=== PATIENT | female | born 1995 | race Caucasian/White ===

== ENCOUNTER 2022-02-17 06:55 | Inpatient (IN) | payer OTHER, SELFPAY ==
[2022-02-17] VITALS (152 sets, daily range): BP systolic 75–146; BP diastolic 39–102; PULSE 47–143; TEMP 36.3–36.9; O2SAT 87–100; BMI 31.4
--- NOTE | 2022-02-17 06:55 | LDADM ---
This patient, Ivania Nicholson, was admitted to Labor/Delivery/Recovery 105 on 02/17/22 at 06:55. Plans for labor, pain management and were discussed with patient. Patient/family oriented to hospital policies and general routines including ID bracelet, bed and alarms, visiting hours, pain management, procedures, bathroom and other care routines, personal items, smoking policy, room service/diet and guest tray routines, infant security routines, and visiting hours. Patient/Family are encouraged to report perceived risks to care and to ask questions if they do not understand what they are told or what they should do. See OBIX for further documentation.
[2022-02-17 07:32] LABS: Basophils Percent Auto 0.3 % (0.2-1.2); Eosinophils Absolute Auto 0.1 K/mm3 (0-0.3); Eosinophils Percent Auto 1.5 % (0-4.4); Hematocrit 34.1 % (37.0-47.0); Hemoglobin 11.6 g/dL (12.0-15.0); Immature Granulocyte Percent A 1.2 % (0-0.5); Lymphocytes Absolute Auto 2.36 K/mm3 (0.9-3.2); Lymphocytes Percent Auto 27.2 % (18.3-44.2); Mean Corpuscular Hemoglobin 30.8 pg (26-34); Mean Corpuscular Volume 90.5 fl (80-100); Mean Platelet Volume 10.4 fl (7.4-10.4); Monocytes Absolute Auto 0.6 K/mm3 (0.1-0.6); Monocytes Percent Auto 6.5 % (2.6-8.5); Neutrophils Absolute Auto 5.5 K/mm3 (1.3-6.7); Neutrophils Percent Auto 63.3 % (45.5-73.1); Platelet Count Result 190 k/mm3 (150-375); Red Blood Count 3.77 M/mm3 (4.2-5.4); Red Cell Distribution Width 12.8 % (11.5-14.5); White Blood Count 8.7 K/mm3 (4.5-10.0)
[2022-02-17] MEDS: LACTATED RINGERS 1,000 ML 125 ML IV CONT ×3 (07:51→16:19)
[2022-02-17] MEDS: OXYTOCIN 30 UNITS/NS 500 ML 30 UNITS/500 ML BAG IV CONT (07:51)
--- NOTE | 2022-02-17 08:40 | WPDOBADMIT ---
Obstetrics - Admit Note Admission Note: record reviewed. Additions to the history and/or subsequent changes in the physical findings follow. 26 y/o G1 at 40 5/7 weeks here for induction of labor. GBS neg. complicated by COVID-19 infection, has recovered. Good movement. Rare contractions.. AVSS NST reactive TOCO: irregular contractions ABD soft, nontender, gravid, vertex EXT nontender Cervix 2-3/80/-2. AROM with clear fluid. Vertex. A: IUP at term with favorable cervix. P: Oxytocin. Anticipate .
--- NOTE | 2022-02-17 12:48 | PM.OBPNLAB ---
Pain Control Date/time seen: 02/17/22 12:48 Comments: Comfortable with epidural. AVSS NST reactive, occasional variable decelerations TOCO: contractions every 2-4 min Cervix 4-5/90/-1. Continue labor.
--- NOTE | 2022-02-17 12:51 | WPDANESEPPF ---
Anes - Initial Pre Proc Eval Procedure: labor epidural Date/Time: 02/17/22 12:51 Surgeon: Mauri Betancourt MD Pre Op Diagnosis: labor pain Pre Op Diagnosis: Induction of Labor Patient Data Age: 26 Gender: F Height: 1.63 m Weight: 83 kg Last Vital Signs Temp 36.8 C 02/17/22 12:34 Pulse 77 02/17/22 12:49 BP 121/58 L 02/17/22 12:49 Pulse Ox 100 02/17/22 12:07 Allergies Allergy/AdvReac Type Severity Reaction Status Date / Time No Known Allergies Allergy Verified 02/17/22 07:11 Home Medications Medication Instructions Recorded Confirmed Type [id number] fum-folic ac-om3 1 pkg PO DAILY 02/17/22 02/17/22 History [Daily ] Laboratory Tests 02/17/22 02/17/22 02/17/22 07:26 07:26 07:26 WBC 8.7 K/mm3 K/mm3 (4.5-10.0) RBC 3.77 M/mm3 L M/mm3 (4.2-5.4) Hgb 11.6 g/dL L g/dL (12.0-15.0) Hct 34.1 % L % (37.0-47.0) MCV 90.5 fl fl (80-100) MCH 30.8 pg pg (26-34) MCHC 34.0 g/dl g/dl (32-36) RDW 12.8 % % (11.5-14.5) Plt Count 190 k/mm3 k/mm3 (150-375) MPV 10.4 fl fl (7.4-10.4) Immature Gran % (Auto) 1.2 % H % (0-0.5) Neut % (Auto) 63.3 % % (45.5-73.1) Lymph % (Auto) 27.2 % % (18.3-44.2) [place] % (Auto) 6.5 % % (2.6-8.5) Eos % (Auto) 1.5 % % (0-4.4) Baso % (Auto) 0.3 % % (0.2-1.2) Lymph # (Auto) 2.36 K/mm3 K/mm3 (0.9-3.2) [place] # (Auto) 0.6 K/mm3 K/mm3 (0.1-0.6) Eos # (Auto) 0.1 K/mm3 K/mm3 (0-0.3) Baso # (Auto) 0.0 K/mm3 K/mm3 (0.0-0.1) Abs Immat Gran (auto) 0.10 K/mm3 H K/mm3 (0.00-0.031) Absolute Neuts (auto) 5.5 K/mm3 K/mm3 (1.3-6.7) Absolute Nucleated RBC 0.0 K/mm3 K/mm3 (0.0-0.012) Nucleated RBC % 0.0 % % (0.0-0.2) RPR Pending Blood Type B Positive Antibody Screen Negative Patient hx anesthesia problems: none Family hx anesthesia problems: none Results Review: All pre-operative results and documents have been reviewed as part of the pre-operative evaluation. [facility] Family History Family History (Updated 01/13/22 @ 15:40 by Magdalena Love RN) Father Acute myocardial infarction Mother Asthma Grandparent Asthma Social History Social History Smoking status: Never smoker Substance use: never Spiritual care concerns: No Anes - Eval Final PreProcedure Day of Procedure 02/17/22 12:51 Patient weight: obese ASA classification: III Anesthesia type and monitoring: regional epidural and standard monitoring Results Review: All pre-operative results and documents have been reviewed as part of the pre-operative evaluation. Informed Consent: The patient's anesthetic plan and its attendant risks and benefits were discussed with the patient/family/POA. Questions were solicited and answers provided to the satisfaction of the patient/family/POA.
[2022-02-17] MEDS: SODIUM CHLORIDE 0.9% IV 300 ML 600 ML I-UTERINE (13:09)
[2022-02-17] MEDS: ONDANSETRON INJ 4 MG/2 ML VIAL IV PUSH (15:19)
[2022-02-17 18:00] LABS: Rapid Plasma Reagin Non-Reactive (NonReactive)
--- NOTE | 2022-02-17 18:26 | PM.OBPRVD ---
OB - Delivery Note Procedure Delivery date: 02/17/22 Procedure: Induction of labor with Induction method: AROM and Per Pitocin Protocol Delivery monitor: External FHT, External Uterine and Internal Uterine Route of delivery: Laceration Description: Perineal - 2nd Degree Delivery repair: vicryl (3-0) Specimen: Yes (cord blood) Quantitative Blood Loss (ml): 120 Anesthesia type: Epidural Disposition: PACU Complications: None Narrative: 26 y/o G1 at 40 5/7 weeks gestation who presented to the hospital for induction of labor. Oxytocin was administered intravenously. Amniotomy was performed with return of clear fluid. She received an epidural for pain control. Her labor progressed and her cervix dilated completely. She pushed with good effort and delivered the 's head to the perineum, followed by the body. The nose and mouth were bulb suctioned. After a delay, the cord was clamped and cut. The was handed off the field. Cord blood was collected. The placenta delivered spontaneously and was grossly normal in appearance. The usual 3 vessel cord was noted. A second degree midline perineal laceration was sustained. This was reapproximated using 3 0 Vicryl in the usual layered fashion. Excellent hemostasis resulted as did excellent reapproximation of the normal anatomy. Needle and instrument counts were correct. The patient was taken to recovery room in stable condition. The infant went to the nursery in stable condition. I was present and scrubbed for the entire delivery. [place] Baby Date of : 02/17/22 Time of : 18:07 Weeks of gestation at delivery: 40 Infant gender: Male Weight (pounds): 5 Weight (ounces): 12 presentation: vertex position: Left Occiput Anterior Placenta delivery description: Spontaneous and Normal Configuration Cord Vessel Description: 3 Vessels and Delayed Cord Clamping score one minute: 9 score five minutes: 9
[2022-02-17] MEDS: OXYTOCIN 30 UNITS/NS 500 ML 30 UNITS/500 ML BAG 125 UNITS IV CONT (18:41)
--- NOTE | 2022-02-17 19:29 | PM.OBDSVD ---
DS: Admitting Diagnosis Discharge Date 02/19/22 Admitting Diagnosis IUP at 40 5/7 weeks Favorable cervix DS: Discharge Diagnosis Discharge Diagnosis (1) (normal spontaneous vaginal delivery): Code(s): O80 - Encounter for full-term uncomplicated delivery Status: Acute OB - DS: Summary OB Procedures : None OB Procedures Intrapartum: Spontaneous Vag Delivery OB Procedures: : None DS: Data Data Completed and Pending Labs on day of discharge: Labs from last 24 hours 02/17/22 02/17/22 02/17/22 07:26 07:26 07:26 WBC 8.7 RBC 3.77 L Hgb 11.6 L Hct 34.1 L MCV 90.5 MCH 30.8 MCHC 34.0 RDW 12.8 Plt Count 190 MPV 10.4 Immature Gran % (Auto) 1.2 H Neut % (Auto) 63.3 Lymph % (Auto) 27.2 [place] % (Auto) 6.5 Eos % (Auto) 1.5 Baso % (Auto) 0.3 Lymph # (Auto) 2.36 [place] # (Auto) 0.6 Eos # (Auto) 0.1 Baso # (Auto) 0.0 Abs Immat Gran (auto) 0.10 H Absolute Neuts (auto) 5.5 Absolute Nucleated RBC 0.0 Nucleated RBC % 0.0 RPR Non-reactive Blood Type B Positive Antibody Screen Negative Discharge Plan Discharge Attending physician on discharge: Mauri Betancourt Discharging Clinician: Mauri Betancourt Patient Disposition: Home, Self-Care Activity: pelvic rest Diet: regular Discharge Instructions: Call or return if temperature above 100.4? F, increased abdominal pain, increased vaginal bleeding or any new problems. Stand Alone Forms: General Discharge Information Follow-up/Referrals: Mauri Betancourt MD [Physician] - 6 Weeks Discharge Medications: New ibuprofen 600 mg tablet 600 mg PO Q6H PRN (Reason: cramps) Qty: 30 RF: 0 Continued Daily [id number] mg-mcg-mg Combo Pack 1 pkg PO DAILY RF: 0 Date of admission: 02/17/22 06:55 Primary Care Provider: PHYSICIAN,GAMMA OPERATOR Admitting Provider: Mauri Betancourt Attending physician on admission: Mauri Betancourt Condition: Stable
[2022-02-17] MEDS: IBUPROFEN 600 MG TABLET PO (23:25)
[2022-02-18 00:19] VITALS: BP 126/75; PULSE 106; RESP 18; TEMP 36.6; O2SAT 99
[2022-02-18 04:00] VITALS: BP 112/77; PULSE 72; RESP 18; TEMP 36.4; O2SAT 99
[2022-02-18] MEDS: ACETAMINOPHEN 325 MG TABLET 650 MG PO ×2 (04:05→15:55)
[2022-02-18 05:23] LABS: Hematocrit 29.3 % (37.0-47.0)
[2022-02-18 07:40] VITALS: BP 122/75; PULSE 80; RESP 18; TEMP 36.6; O2SAT 98
[2022-02-18] MEDS: DOCUSATE SODIUM 100 MG CAPSULE PO ×2 (08:42→15:55)
[2022-02-18] MEDS: MULTIVIT/MIN/PREN/FOL AC/IRON TABLET 1 TAB PO (08:42)
[2022-02-18] MEDS: IBUPROFEN 600 MG TABLET PO ×2 (08:42→19:56)
[2022-02-18] MEDS: BENZOCAINE 20% AER SPR (*SP) 56 GM CAN 1 SPRAY TOPICAL (08:43)
[2022-02-18] MEDS: WITCH HAZEL 40 PADS 1 PAD TOPICAL (08:43)
[2022-02-18 12:00] VITALS: BP 113/67; PULSE 84; RESP 18; TEMP 37.6; O2SAT 99
--- NOTE | 2022-02-18 12:24 | PM.OBPNVD ---
OB - PN: Subj Subjective Date/time seen: 02/18/22 12:24 Narrative: Pain OK. Would like circumcision for son. OB - PN: Obj Data Labs CBC & Chem 7: 02/18/22 04:08 Labs: Laboratory Results - last 24 hr 02/17/22 02/18/22 07:26 04:08 Hgb 10.0 L Hct 29.3 L RPR Non-reactive OB - PN A/P Plan Comments: A: PPD#1, doing well. P: Routine care. Reviewed circ. Exam Psych: Other: AVSS ABD soft, nontender, fundus firm EXT nontender
--- NOTE | 2022-02-18 12:42 | PC.NURSE ---
[id number] Consulted with patient to assess needs related to . Mother led conversation with her experience with feeding baby so far. Mother works well with her infant and watching for feeding cues, placing infant skin to skin covered with a blanket and discussing mothers desires to feed her infant. Mother had just attempted to breast prior to RN entering the room and was now pumping her breast. Father of baby is attempting to bottle feed human milk that was expressed from mother earlier. RN supported the father with bottle feeding. Infant is reluctant to suck but became more assertive after eating 7-10 mls of human milk, then dad supplemented with some formula. Reviewed good handwashing when working with , breast, nipples and how to protect the nipples with a deep latch. Mother will call for assistance when is showing feeding cues or 3 hours from the beginning of the last feeding. [phone] Mother desires to attempt to breastfeed infant with and without a nipple shield. Discussed the risks and benefits of nipple shield use, pumping, pacifiers and bottle feeding. Reviewed pumping at least 8 times in 24 hours for 10-15 min with 1-2 times at night for milk production and stimulation due to nipple shield use. Supplementing with formula is an order from the farm helper at this time related to previous low blood sugars. Encouraged understanding the benefits of skin to skin, responding to feeding cues, frequencies of feeding 8-12 times in 24 hours (approximately 2-3 hours), duration of feedings, milk production, intake/output feeding sheet, signs of adequate intake and mother has infant skin to skin. Discussed stimulating with hand expressing colostrum, touch and talking to infant to encourage eating at the breast. Reviewed positioning and alignment, supporting breast, off-centered (asymmetrical latch) and leading with the chin with big open wide gape. Infant latched optimally to the right breast in football position with a nipple shield, then to the left breast with the nipple shield. maintains latch without discomfort to mother. Nipple care with optimal latch and have clean hands when touching the nipple/breast. is reluctant to maintain sucking. is supplemented with human milk 1.5 mls and given formula for a total feeding of 12-15 mls. Resources used to facilitate learning were used from the visual handout/ tool/mom and baby guide. Mother voiced understanding responding to feeding cues, may need to stimulating approximately 2-3 hours from the start of the last feeding, calling for assistance if the infant does not latch or there discomfort . Reported to primary RN.
[2022-02-18 15:45] VITALS: BP 123/78; PULSE 88; RESP 18; TEMP 37.2; O2SAT 100
[2022-02-18 20:00] VITALS: BP 107/70; PULSE 81; RESP 18; TEMP 36.6; O2SAT 99
[2022-02-19] MEDS: IBUPROFEN 600 MG TABLET PO (04:36)
[2022-02-19 07:50] VITALS: BP 112/67; PULSE 80; RESP 16; TEMP 36.3; O2SAT 98
--- NOTE | 2022-02-19 08:00 | PC.NURSE ---
PT introductions made and plan of care discussed per post , pain management, breast feeding, bottle feeding and pumping, daily care activities and pending discharge to home. PT and spouse both recipients of such instructions and no barriers to learning identified at this time. PT received such instructions per pone to one discussion, mom baby care guide and demonstrations this shift. PT verbalized understanding of such care.
[2022-02-19 09:21] VITALS: PULSE 80; RESP 16; O2SAT 98
[2022-02-19] MEDS: DOCUSATE SODIUM 100 MG CAPSULE PO (09:21)
[2022-02-19] MEDS: ACETAMINOPHEN 325 MG TABLET 650 MG PO (09:21)
[2022-02-19] MEDS: MULTIVIT/MIN/PREN/FOL AC/IRON TABLET 1 TAB PO (09:23)
--- NOTE | 2022-02-19 12:21 | PM.OBPNVD ---
OB - PN: Subj Subjective Date/time seen: 02/19/22 12:21 Narrative: Pain OK. Would like to go home. OB - PN: Obj Data Labs CBC & Chem 7: 02/18/22 04:08 OB - PN A/P Plan Comments: A: PPD#2, doing well. P: Home to f/u 6 weeks. Exam Psych: Other: AVSS ABD soft, nontender, fundus firm EXT nontender
--- NOTE | 2022-02-19 15:00 | PC.NURSE ---
PT received discharge instructions per protocol and verbalized understanding of such care.
--- NOTE | 2022-02-19 15:50 | PC.NURSE ---
pt discharged to home ambulatory accompanied by spouse and and taken to waiting car. Follow up appts confirmed
[2022-02-20 11:58] VITALS: BP 127/70; PULSE 105; RESP 20; TEMP 37.1; O2SAT 100
== END 2022-02-19 15:50 | disposition home or self-care (01) | DRG 807 ==
LOC: ANHLDR 19:31 → ANHOB2 20:43
PROVIDERS: Admitting Provider Obstetrics & Gynecology; Visit Provider Obstetrics & Gynecology
DX: O36.8330 Maternal care for abnormalities of the fetal heart rate or rhythm, third trimester, not applicable or unspecified (principal); Z37.0 Single live birth; Z3A.40 40 weeks gestation of pregnancy; O70.1 Second degree perineal laceration during delivery
CPT/HCPCS: 36415; 85014; 85018; 85025; 86592; 86850; 86900; 86901; A9270; J0131; J2405; J2590; J2795; J7030; J7120

== ENCOUNTER 2022-03-21 13:35 | Emergency (ER) | payer OTHER, SELFPAY ==
[2022-03-21 13:42] VITALS: BP 160/80; PULSE 92; RESP 16; TEMP 36.9; O2SAT 99
[2022-03-21 13:46] VITALS: BP 116/80; PULSE 92; RESP 16; TEMP 36.9; O2SAT 99
--- NOTE | 2022-03-21 14:01 | ED.EYEPROB ---
HPI - Eye Problem General Chief complaint: Eye Problems Stated complaint: eye pain Time Seen by Provider: 03/21/22 14:01 Source: patient Mode of arrival: ambulatory Limitations: no limitations History of Present Illness HPI Narrative: 26-year-old female presented for complaint of redness and drainage to the right eye, onset this morning. She states she woke with the eye crusted with yellow drainage. States it feels like something is in the eye, irritated and itching. Denies sick contacts. Denies eye pain, photophobia, vision changes, sinus congestion or pressure, headache fever or chills. chief complaint: eye pain Related Data Home Medications Medication Instructions Recorded Confirmed [id number] fum-folic ac-om3 1 pkg PO DAILY 02/17/22 03/21/22 Allergies Allergy/AdvReac Type Severity Reaction Status Date / Time No Known Allergies Allergy Verified 03/21/22 13:59 Review of Systems Review of Systems: CONSTITUTIONAL: Denies body aches, fever, chills EYES:Endorses drainage and redness to right eye; FB sensation, Denies visual changes photophobia or pain ENT: Denies rhinorrhea, congestion, sore throat, or otalgia. CARDIOVASCULAR: Denies chest pain, palpitations RESPIRATORY: Denies cough or dyspnea. GASTROINTESTINAL: Denies abdominal pain, nausea, vomiting, or diarrhea. SKIN: Denies rash, itching, or wounds. MUSCULOSKELETAL: Denies back pain, joint pain, or myalgia. NEUROLOGIC: Denies headache, numbness, tingling, or weakness. PSYCH: Denies depression or anxiety. All systems reviewed & are unremarkable except as noted in HPI and below PMFSH Family History Family History Father Acute myocardial infarction Mother Asthma Grandparent Asthma Social History Social History Smoking status: Never smoker Substance use: never Spiritual care concerns: No Comments At time of signature, I have reviewed and agree with nursing past medical, surgical, social and family history unless otherwise noted. Please see nursing chart for further information. There is no relevant family history pertinent to the presenting complaint Exam Narrative: GENERAL: Well-appearing, well-nourished, and in no acute distress. HEAD: Normocephalic, atraumatic. EYES: right conjunctival injection, no active drainage PERRLA EOMI. Lid eversion showed no fb ENT: Mucous membranes pink and moist. No rhinorrhea. TMs normal bilaterally. NECK: Normal AROM. Supple. CHEST: No respiratory distress. Clear to auscultation. HEART: Regular rate and rhythm. No murmur appreciated. Normal peripheral pulses. ABDOMEN: Soft, nontender, nondistended MUSCULOSKELETAL: No bony tenderness. EXTREMITIES: Normal range of motion. SKIN: Warm, dry, no rash. Normal skin turgor. NEURO: No focal deficits. Alert and oriented x3. Steady gait PSYCH: Normal affect. Course Course Emergency Course: Patient is aware of diagnosis, understands and agrees to treatment plan. Anticipatory guidance given. Patient agrees to follow-up as directed and is aware of reasons to seek care at the emergency department. Portions of this record may have been created with voice recognition software Level of Care: Express Care Visit Vital Signs Vital signs: Vital Signs Temperature 98.4 F 03/21/22 13:42 Pulse Rate 92 03/21/22 13:42 Respiratory Rate 16 03/21/22 13:42 Blood Pressure 160/80 H 03/21/22 13:42 Pulse Oximetry 99 03/21/22 13:42 Temperature 98.4 F 03/21/22 13:46 Pulse Rate 92 03/21/22 13:46 Respiratory Rate 16 03/21/22 13:46 Blood Pressure 116/80 03/21/22 13:46 Pulse Oximetry 99 03/21/22 13:46 MDM - Eye Problem Differential Diagnosis Differential diagnosis: Likely corneal abrasion, conjunctivitis and acute iritis Discharge Plan Discharge Clinical Impression: Bacterial conjunctivitis Patient Disposit
== END 2022-03-21 14:15 | disposition home or self-care (01) ==
PROVIDERS: Emergency Provider Nurse Practitioner Family; PCP Family Medicine
DX: H10.9 Unspecified conjunctivitis (principal); Z86.16 Personal history of COVID-19
CPT/HCPCS: 99213; G0463

== ENCOUNTER 2022-11-26 13:11 | Emergency (ER) | payer OTHER, SELFPAY ==
--- NOTE | ~2022-11-26 | XR_ITS ---
EXAM: XR abdomen/kub 1V DATE: 11/26/2022 14:20 HISTORY: BILATERAL FLANK PAIN for 2 days . COMPARISON: None available. FINDINGS: Clear lung bases. Normal bowel gas pattern. No organomegaly. Multiple pelvic phleboliths, otherwise no abnormal abdominal calcification. Regional bones and soft tissues normal for age. IMPRESSION: Normal abdominal radiograph findings. Reviewed, dictated and finalized at location K. WARE QUALITY TESTER
[2022-11-26 13:24] VITALS: BP 120/73; PULSE 89; RESP 16; TEMP 36.9; O2SAT 100
--- NOTE | 2022-11-26 14:01 | ED.BACK ---
HPI - Back Pain/Injury General Chief Complaint: Back Pain/Injury Stated Complaint: Back/side pain Time Seen by Provider: 11/26/22 14:02 Source: patient and RN notes reviewed Mode of arrival: ambulatory Limitations: no limitations History of Present Illness HPI Narrative: 27 y/o female presented for c/o bilateral flank pain since yesterday. Also reports 2 days ago she had severe epigastric pain radiating across the upper abdomen, causing her to 'double over in pain.' She took pepcid and gas-x without significant relief, but the pain later improved in the night. She developed the bilateral flank pain yesterday. States pain is constant, with occasional stabbing pain. Also taking Tylenol and ibuprofen. Nothing changes the intensity of the pain. Denies current abdominal pain, urinary complaints, n/v/d/f/c. Denies injury. LBM 3 days ago. Currently , no menses. Related Data Home Medications Medication Instructions Recorded Confirmed vits 75-iron 28 mg-folic 1 pkg PO DAILY 02/17/22 11/26/22 acid 800 mcg-omega3 440 mg oral pack Allergies Allergy/AdvReac Type Severity Reaction Status Date / Time No Known Allergies Allergy Verified 11/26/22 13:41 Review of Systems Review of Systems: per HPI [facility] Family History Family History Father Acute myocardial infarction Mother Asthma Grandparent Asthma Social History Social History Smoking status: Never smoker Substance use: never Spiritual care concerns: No Comments At time of signature, I have reviewed and agree with nursing past medical, surgical, social and family history unless otherwise noted. Please see nursing chart for further information. There is no relevant family history pertinent to the presenting complaint Exam Narrative: GENERAL: Well-appearing and in no acute distress. ENT: Mucous membranes pink and moist. NECK: Normal AROM. Supple. CHEST: No respiratory distress. Clear to auscultation. HEART: Regular rate and rhythm. ABDOMEN: Soft, nontender, nondistended, normal active bowel sounds. Mild left CVA tenderness with abdominal palpation SKIN: Warm, dry, no rash. NEURO: steady gait PSYCH: Normal affect. Course Course Emergency Course: Patient is aware of diagnosis, understands and agrees to treatment plan. Anticipatory guidance given. Patient agrees to follow-up as directed and is aware of reasons to seek care at the emergency department. Portions of this record may have been created with voice recognition software Level of Care: Express Care Visit Vital Signs Vital signs: Vital Signs Temperature 98.5 F 11/26/22 13:24 Pulse Rate 89 11/26/22 13:24 Respiratory Rate 16 11/26/22 13:24 Blood Pressure 120/73 11/26/22 13:24 Pulse Oximetry 100 11/26/22 13:24 Temperature 98.5 F 11/26/22 13:24 Pulse Rate 89 11/26/22 13:24 Respiratory Rate 16 11/26/22 13:24 Blood Pressure 120/73 11/26/22 13:24 Pulse Oximetry 100 11/26/22 13:24 Reviewed MDM - Back Pain/Injury MDM Narrative Medical decision making narrative: KUB result reviewed with pt. She is well appearing. Declines toradol. Discussed possible etiologies of symptoms with the patient. Advised supportive measures and reviewed at length signs/symptoms to go to the ER. Pt is appropriate for outpt treatment and f/u. She is agreeable with the plan. Differential Diagnosis Differential diagnosis: Likely renal colic, pyelonephritis and discitis Lab Data Labs: Urine Glucose Negative Reference Range: Negative Urine Bilirubin Negative Reference Range: Negative Urine Ketone Negative Reference Range: Negative Urine Speci
[2022-11-26 14:45] VITALS: PULSE 80; RESP 20; O2SAT 98
== END 2022-11-26 14:45 | disposition home or self-care (01) ==
PROVIDERS: Emergency Provider Nurse Practitioner Family
DX: R10.9 Unspecified abdominal pain (principal)
CPT/HCPCS: 74018; 81003; 87086; 99213; G0463

== ENCOUNTER 2023-10-04 15:01 | Emergency (ER) | payer OTHER, SELFPAY ==
[2023-10-04 15:05] VITALS: BP 133/80; PULSE 97; RESP 20; TEMP 36.6; O2SAT 100
[2023-10-04 15:22] LABS: Basophils Percent Auto 0.3 % (0.2-1.2); Eosinophils Absolute Auto 0.1 K/mm3 (0-0.3); Eosinophils Percent Auto 1.2 % (0-4.4); Hematocrit 34.7 % (37.0-47.0); Hemoglobin 11.7 g/dL (12.0-15.0); Immature Granulocyte Absolute 0.01 K/mm3 (0.00-0.031); Immature Granulocyte Percent A 0.2 % (0-0.5); Lymphocytes Percent Auto 30.5 % (18.3-44.2); Mean Corpuscular HGB Conc 33.7 g/dl (32-36); Mean Corpuscular Hemoglobin 29.9 pg (26-34); Mean Corpuscular Volume 88.7 fl (80-100); Mean Platelet Volume 9.5 fl (7.4-10.4); Monocytes Absolute Auto 0.4 K/mm3 (0.1-0.6); Monocytes Percent Auto 6.4 % (2.6-8.5); Neutrophils Absolute Auto 3.6 K/mm3 (1.3-6.7); Neutrophils Percent Auto 61.4 % (45.5-73.1); Platelet Count Result 253 k/mm3 (150-375); Red Blood Count 3.91 M/mm3 (4.2-5.4); Red Cell Distribution Width 12.8 % (11.5-14.5); White Blood Count 5.9 K/mm3 (4.5-10.0)
[2023-10-04 15:49] LABS: Beta HCG Quantitative 724.83 mIU/ML
--- NOTE | 2023-10-04 18:58 | ED.PREGNANCY ---
HPI - General Chief complaint: Vaginal Bleeding Stated complaint: known miscarriage, vag bleed Time Seen by Provider: 10/04/23 18:44 Source: patient Mode of arrival: ambulatory Limitations: no limitations History of Present Illness HPI Narrative: This is a 28-year-old female that presents to the emergency department for a miscarriage. Reports she is a little over 8 weeks by LMP. Reports she started bleeding a week ago. She had an ultrasound that confirmed that there was no heartbeat present. Her hormone level has been decreasing. She presented today for worsening bleeding and some lightheadedness. Her OB is Dr. Destiny Fountain. Denies fever or vomiting. Related Data Home Medications Medication Instructions Recorded Confirmed vits 75-iron 28 mg-folic 1 pkg PO DAILY 02/17/22 11/26/22 acid 800 mcg-omega3 440 mg oral pack Allergies Allergy/AdvReac Type Severity Reaction Status Date / Time No Known Allergies Allergy Verified 11/26/22 13:41 Review of Systems Review of Systems: CONSTITUTIONAL: Denies fever GASTROINTESTINAL: Reports pelvic pain. Denies nausea, vomiting All systems reviewed & are unremarkable except as noted in HPI and below PMFSH Past Medical History Medical History (Updated 10/04/23 @ 20:13 by Elsie Manuel PA-C) No active medical problems Family History Family History Father Acute myocardial infarction Mother Asthma Grandparent Asthma Social History Social History Smoking status: Never smoker Substance use: never Spiritual care concerns: No Exam Narrative: GENERAL: Well-appearing, well-nourished, and in no acute distress. HEAD: Normocephalic, atraumatic. EYES: EOMI. CHEST: Clear to auscultation. No respiratory distress. No wheezes rales or rhonchi HEART: Regular rate and rhythm. No murmur heard. Normal peripheral pulses. ABDOMEN: Soft, nontender, nondistended, normal active bowel sounds. EXTREMITIES: Normal range of motion. No edema. SKIN: Warm, dry, no rash. NEURO: No focal deficits. Alert and oriented x3. PSYCH: Normal mood and affect PELVIC: Mild amount of dark red blood in the vaginal vault with small blood clot present Course Course Emergency Course: Patient and family updated on workup and agree with plan of care Consultations Consultation #1: Spoke with Dr. Destiny Fountain about patient and workup. Will follow-up in clinic tomorrow Date: 10/04/23 Vital Signs Vital signs: Vital Signs Temperature 97.8 F 10/04/23 15:05 Pulse Rate 97 10/04/23 15:05 Respiratory Rate 20 10/04/23 15:05 Blood Pressure 133/80 10/04/23 15:05 Pulse Oximetry 100 10/04/23 15:05 Temperature 97.8 F 10/04/23 15:05 Pulse Rate 97 10/04/23 15:05 Respiratory Rate 20 10/04/23 15:05 Blood Pressure 133/80 10/04/23 15:05 Pulse Oximetry 100 10/04/23 15:05 MDM - OB/Uterine Contractions MDM Narrative Medical decision making narrative: Patient presents to the ER for vaginal bleeding. Reports she is about 8 weeks . She has been following with Dr. Destiny Fountain. she started to have bleeding 1 week ago. She had ultrasound which showed intrauterine without any cardiac motion. Her quantitative beta hCG has been down trending. She is having some worsening bleeding and lightheadedness today which prompted her to be seen. Her vitals are stable. She is afebrile and nontoxic appearing. Her hemoglobin is 11.7. No concerning amount of bleeding on exam currently. Patient and family updated on workup. Spoke with Dr. Destiny Fountain about patient and workup. Will follow-up in clinic tomorrow. She was given warnings to return to the ER Differential Diagnosis Differential diagnosis: Likely other ( , incomplete , anemia) Lab Data Attestation: I reviewed the patient's lab results. 10/04/23 1
[2023-10-04] MEDS: SODIUM CHLORIDE 0.9% IV 500 ML 999 ML IV CONT (19:07)
[2023-10-04] MEDS: IBUPROFEN 400 MG TABLET 800 MG PO (20:05)
[2023-10-04 20:28] VITALS: BP 134/76; PULSE 87; RESP 16; O2SAT 98
== END 2023-10-04 20:29 | disposition home or self-care (01) ==
PROVIDERS: Student in an Organized Health Care Education/Training Program; Emergency Provider Physician Assistant
DX: O03.4 Incomplete spontaneous abortion without complication (principal)
CPT/HCPCS: 36415; 81025; 84702; 85025; 86850; 86900; 86901; 96360; 99284; A9270; J7040

== ENCOUNTER 2024-10-30 13:54 | Observation (INO) | payer OTHER, SELFPAY ==
[2024-10-30] VITALS (7 sets, daily range): BP systolic 93–117; BP diastolic 55–73; PULSE 101–116; O2SAT 98
--- NOTE | 2024-10-30 14:10 | OBADM ---
This patient, Ivania Nicholson, admitted to the OB room [facility] for observation. Patient/family oriented to hospital policies and general routines including ID bracelet, bed and alarms, visiting hours, pain management, procedures, bathroom and other care routines, personal items, smoking policy, room service/diet, and visiting hours. Patient/Family are encouraged to report perceived risks to care and to ask questions if they do not understand what they are told or what they should do.
--- NOTE | 2024-10-30 14:13 | ECG_ITS ---
Test Date: 2024-10-30 14:39:34 Measurements Intervals [place] Rate: 102 P: 41 VA: 150 QRS: 15 QRSD: 92 T: 2 QT: 325 QTc: 424 Interpretive Statements SINUS TACHYCARDIA NONSPECIFIC T-WAVE ABNORMALITY ABNORMAL ECG Electronically Signed On 10-31-2024 08:53:13 SURGICAL TECHNOLOGIST by Garcia Argueta M.D.
--- NOTE | 2024-10-30 14:47 | PC.NURSE ---
Matt Martínez notified of adm c/o of dizziness, nausea and tachycardia. Informed of EKG results and that EKG was reveiwed by ER . Informed of current HR at 110's and that HR has been between 105-125. Orders reveiced.
[2024-10-30 15:25] LABS: Basophils Percent Auto 0.4 % (0.2-1.2); Eosinophils Absolute Auto 0.1 K/mm3 (0-0.3); Hematocrit 27.2 % (37.0-47.0); Hemoglobin 9.4 g/dL (12.0-15.0); Immature Granulocyte Absolute 0.08 K/mm3 (0.00-0.031); Lymphocytes Absolute Auto 1.64 K/mm3 (0.9-3.2); Lymphocytes Percent Auto 20.2 % (18.3-44.2); Mean Corpuscular HGB Conc 34.6 g/dl (32-36); Mean Corpuscular Hemoglobin 30.1 pg (26-34); Mean Corpuscular Volume 87.2 fl (80-100); Mean Platelet Volume 9.4 fl (7.4-10.4); Monocytes Absolute Auto 0.8 K/mm3 (0.1-0.6); Monocytes Percent Auto 9.9 % (2.6-8.5); Neutrophils Absolute Auto 5.5 K/mm3 (1.3-6.7); Neutrophils Percent Auto 67.5 % (45.5-73.1); Platelet Count Result 206 k/mm3 (150-375); Red Blood Count 3.12 M/mm3 (4.2-5.4); Red Cell Distribution Width 12.7 % (11.5-14.5); White Blood Count 8.1 K/mm3 (4.5-10.0)
[2024-10-30 15:31] LABS: Alanine Aminotransferase 10 U/L (6-35); Albumin Level 3.3 g/dL (3.5-5.1); Alkaline Phosphatase 151 U/L (38-126); Anion Gap 3 mmol/L (4-12); Aspartate Amino Transferase 15 U/L (14-36); Bilirubin,Total 0.3 mg/dL (0.2-1.3); Blood Urea Nitrogen 4 mg/dL (7-17); Calcium 8.3 mg/dL (8.4-10.2); Carbon Dioxide 20 mmol/L (22-30); Chloride 110 mmol/L (98-107); Estimated Glomerular Filt Rate > 60; Glucose 100 mg/dL (65-110); Potassium 3.4 mmol/L (3.4-5.0); Sodium 133 mmol/L (137-145)
--- NOTE | 2024-10-30 15:34 | PC.NURSE ---
Matt Martínez notified of lab result and orthostatic BP's. Patient was taking Meclizine in the beginning of her , ok for patient to take today and to follow up in office this week as needed.
--- NOTE | 2024-10-30 15:55 | PC.NURSE ---
Lab results reviewed with patient, patient encouraged to drink Gatorade to increase sodium and take an over the counter iron supplement and try a dose of the meclazine that she has at home. She is to follow up with her MD next week. She has an appt on thursday. Encouraged to call office tomorrow if she is not feeling better.
--- NOTE | 2024-11-15 08:07 | P.PNOB_ITS ---
OB - Triage/Final Diagnosis Visit Information Date of evaluation: 10/30/24 Reason for evaluation: other (elevated HR, dizziness) Comments/Additional reasons for admission: I have assessed the risk for this patient, Ivania Nicholson, and determined that she would benefit from observation care. Evaluation Laboratory results: Laboratory Tests 10/30/24 15:10 WBC 8.1 RBC 3.12 L Hgb 9.4 L Hct 27.2 L MCV 87.2 MCH 30.1 MCHC 34.6 RDW 12.7 Plt Count 206 MPV 9.4 Immature Gran % (Auto) 1.0 H Neut % (Auto) 67.5 Lymph % (Auto) 20.2 [place] % (Auto) 9.9 H Eos % (Auto) 1.0 Baso % (Auto) 0.4 Lymph # (Auto) 1.64 [place] # (Auto) 0.8 H Eos # (Auto) 0.1 Baso # (Auto) 0.0 Abs Immat Gran (auto) 0.08 H Absolute Neuts (auto) 5.5 Absolute Nucleated RBC 0.000 Nucleated RBC % 0.0 Sodium 133 L Potassium 3.4 Chloride 110 H Carbon Dioxide 20 L Anion Gap 3 L BUN 4 L Creatinine 0.40 L Estim Creat Clear Calc Not Reportable Estimated GFR > 60 Glucose 100 Calcium 8.3 L Total Bilirubin 0.3 AST 15 ALT 10 Alkaline Phosphatase 151 H Total Protein 6.0 L Albumin 3.3 L Comments: Pt evaluated on unit by RN. Plan of care discussed with CNVeronique. FHTs reassuring. VSS. EKG read by ED MD. No evidence of active labor or ROM.
== END 2024-10-30 16:01 | disposition home or self-care (01) ==
PROVIDERS: Advanced Practice Midwife; Admitting Provider Obstetrics & Gynecology; Visit Provider Obstetrics & Gynecology
DX: O26.893 Other specified pregnancy related conditions, third trimester (principal); R00.0 Tachycardia, unspecified; R42 Dizziness and giddiness; Z3A.35 35 weeks gestation of pregnancy
CPT/HCPCS: 36415; 80053; 85025; 93005; G0378; G0379

== ENCOUNTER 2024-11-22 06:14 | Inpatient (IN) | payer OTHER, SELFPAY ==
[2024-11-22] VITALS (91 sets, daily range): BP systolic 98–139; BP diastolic 47–93; PULSE 74–127; RESP 14–16; TEMP 36.7–37.3; O2SAT 95–100; BMI 33.3
--- NOTE | 2024-11-22 06:14 | LDADM ---
This patient, Ivania Nicholson, was admitted to Labor/Delivery/Recovery 107 on 11/22/24 at 06:14. Plans for labor, pain management and were discussed with patient. Patient/family oriented to hospital policies and general routines including ID bracelet, bed and alarms, visiting hours, pain management, procedures, bathroom and other care routines, personal items, smoking policy, room service/diet and guest tray routines, infant security routines, and visiting hours. Patient/Family are encouraged to report perceived risks to care and to ask questions if they do not understand what they are told or what they should do. See OBIX for further documentation.
--- NOTE | 2024-11-22 09:19 | WPDOBADMIT ---
Obstetrics - Admit Note Admission Note: record reviewed. Additions to the history and/or subsequent changes in the physical findings follow. 29 y/o at 38 6/7 weeks with contractions since 0200. Cervix changed here from 3 to 4 cm. She has been admitted for labor. AVSS NST reactive TOCO: contractions every 2-3 min ABD soft, nontender, gravid, vertex EXT nontender Cervix 4/80/-2. AROM with clear fluid. Vertex. IUPC placed. A: IUP at term with labor. P: Anticipate .
[2024-11-22 09:36] LABS: Basophils Percent Auto 0.4 % (0.2-1.2); Eosinophils Absolute Auto 0.1 K/mm3 (0-0.3); Eosinophils Percent Auto 0.6 % (0-4.4); Hematocrit 33.5 % (37.0-47.0); Hemoglobin 11.1 g/dL (12.0-15.0); Immature Granulocyte Absolute 0.09 K/mm3 (0.00-0.031); Immature Granulocyte Percent A 0.9 % (0-0.5); Lymphocytes Absolute Auto 1.98 K/mm3 (0.9-3.2); Lymphocytes Percent Auto 20.5 % (18.3-44.2); Mean Corpuscular HGB Conc 33.1 g/dl (32-36); Mean Corpuscular Hemoglobin 28.8 pg (26-34); Mean Corpuscular Volume 86.8 fl (80-100); Mean Platelet Volume 9.2 fl (7.4-10.4); Monocytes Absolute Auto 0.9 K/mm3 (0.1-0.6); Monocytes Percent Auto 9.1 % (2.6-8.5); Neutrophils Absolute Auto 6.6 K/mm3 (1.3-6.7); Neutrophils Percent Auto 68.5 % (45.5-73.1); Platelet Count Result 258 k/mm3 (150-375); Red Blood Count 3.86 M/mm3 (4.2-5.4); Red Cell Distribution Width 12.8 % (11.5-14.5); White Blood Count 9.7 K/mm3 (4.5-10.0)
[2024-11-22 10:07] LABS: Rapid Plasma Reagin Non-Reactive (NonReactive)
[2024-11-22 10:25] LABS: HIV 1/2 Ab P24 Ag Result Negative (Negative)
[2024-11-22] MEDS: LACTATED RINGERS 1,000 ML 125 ML IV CONT ×2 (10:33→11:56)
[2024-11-22] MEDS: ONDANSETRON INJ 4 MG/2 ML VIAL IV PUSH (11:36)
[2024-11-22] MEDS: fentaNYL CITRATE INJ (*CRX) 100 MCG/2 ML VIAL IV PUSH (11:37)
[2024-11-22] MEDS: OXYTOCIN 30 UNITS/NS 500 ML 30 UNITS/500 ML BAG 999 UNITS IV CONT (13:34)
--- NOTE | 2024-11-22 13:49 | PM.OBPRVD ---
OB - Vaginal Delivery Note Procedure Delivery date: 11/22/24 Events: Other (Labor at term) Induction method: None Delivery augmentation: Rupture of Membranes Delivery monitor: External FHT and External Uterine Route of delivery: Episiotomy description: None Laceration Description: None Specimen: Yes (cord blood) Quantitative Blood Loss (ml): 80 Anesthesia type: Epidural Disposition: PACU Complications: None Narrative: 29 y/o at 38 6/7 weeks gestation who presented to the hospital with contractions. Labor was diagnosed. Amniotomy was performed with return of clear fluid. She received an epidural for pain control. Her labor progressed and her cervix dilated completely. She pushed with good effort and delivered the infant's head to the perineum, followed by the body. The nose and mouth were bulb suctioned. After a delay, the cord was clamped and cut. The infant was handed off the field. Cord blood was collected. The placenta delivered spontaneously and was grossly normal in appearance. The usual 3 vessel cord was noted. There were no lacerations. Needle and instrument counts were correct. The patient was taken to recovery room in stable condition. The went to the nursery in stable condition. I was present and scrubbed for the entire delivery. Baby Date of : 11/22/24 Time of : 13:31 Gestational Age by Date: 38 Infant gender: Male presentation: vertex position: Left Occiput Anterior Placenta delivery description: Spontaneous and Normal Configuration Cord Vessel Description: 3 Vessels and Delayed Cord Clamping score one minute: 9 score five minutes: 9
--- NOTE | 2024-11-22 13:54 | PM.OBDSVD ---
DS: Admitting Diagnosis Discharge Date 11/23/24 Admitting Diagnosis IUP at 38 6/7 weeks Labor DS: Discharge Diagnosis Discharge Diagnosis (1) (normal spontaneous vaginal delivery): Code(s): O80 - Encounter for full-term uncomplicated delivery Status: Acute OB - DS: Summary OB Procedures : None OB Procedures Intrapartum: Spontaneous Vag Delivery OB Procedures: : None Peripartum Data Laceration Description: None Episiotomy description: None Time Spent with Patient Time attestation: Total time spent providing and/or coordinating discharge services: DS: Data Data Completed and Pending Labs on day of discharge: Labs from last 24 hours 11/22/24 09:26 WBC 9.7 RBC 3.86 L Hgb 11.1 L Hct 33.5 L MCV 86.8 MCH 28.8 MCHC 33.1 RDW 12.8 Plt Count 258 MPV 9.2 Immature Gran % (Auto) 0.9 H Neut % (Auto) 68.5 Lymph % (Auto) 20.5 [place] % (Auto) 9.1 H Eos % (Auto) 0.6 Baso % (Auto) 0.4 Lymph # (Auto) 1.98 [place] # (Auto) 0.9 H Eos # (Auto) 0.1 Baso # (Auto) 0.0 Abs Immat Gran (auto) 0.09 H Absolute Neuts (auto) 6.6 Absolute Nucleated RBC 0.000 Nucleated RBC % 0.0 RPR Non-reactive HIV 1&2 Ab/P24 Ag 4thGn Negative Blood Type B Positive Antibody Screen Negative Discharge Plan Discharge Attending physician on discharge: Mauri Betancourt Discharging Clinician: Mauri Betancourt Patient Disposition: Home, Self-Care Activity: pelvic rest Diet: regular Discharge Instructions: Call or return if temperature above 100.4? F, increased abdominal pain, increased vaginal bleeding or any new problems. Patient Language: Greenlandic Stand Alone Forms: General Discharge Information Follow-up/Referrals: Mauri Betancourt MD [Physician] - 6 Weeks Discharge Medications: New ibuprofen 600 mg tablet 600 mg PO Q6H PRN (Reason: cramps) Qty: 30 0RF ferrous sulfate 325 mg (65 mg iron) tablet 325 mg PO DAILY Qty: 30 0RF Continued -huwn fum-folic ac-om3 28-800-440 mg-mcg-mg Combo Pack 1 pkg PO DAILY Date of admission: 11/22/24 06:14 Primary Care Provider: UNKNOWN,DOCTOR Admitting Provider: Mauri Betancourt Attending physician on admission: Mauri Betancourt Condition: Stable
[2024-11-22] MEDS: OXYTOCIN 30 UNITS/NS 500 ML 30 UNITS/500 ML BAG 125 UNITS IV CONT (14:06)
[2024-11-22] MEDS: IBUPROFEN 600 MG TABLET PO (18:29)
[2024-11-23 00:22] VITALS: BP 105/69; PULSE 74; RESP 14; TEMP 37; O2SAT 100
[2024-11-23] MEDS: IBUPROFEN 600 MG TABLET PO (00:24)
[2024-11-23 04:10] VITALS: BP 98/63; PULSE 64; RESP 14; TEMP 37.2; O2SAT 100
[2024-11-23 05:42] LABS: Hematocrit 28.9 % (37.0-47.0); Hemoglobin 9.5 g/dL (12.0-15.0)
--- NOTE | 2024-11-23 08:15 | P.PNOB_ITS ---
OB - PN: Subj Subjective Date/time seen: 11/23/24 08:15 Narrative: Pain OK. Would like to go home. OB - PN: Obj Data Labs 11/23/24 04:00 Labs: Laboratory Results - last 24 hr 11/22/24 11/23/24 09:26 04:00 WBC 9.7 RBC 3.86 L Hgb 11.1 L 9.5 L Hct 33.5 L 28.9 L MCV 86.8 MCH 28.8 MCHC 33.1 RDW 12.8 Plt Count 258 MPV 9.2 Immature Gran % (Auto) 0.9 H Neut % (Auto) 68.5 Lymph % (Auto) 20.5 [place] % (Auto) 9.1 H Eos % (Auto) 0.6 Baso % (Auto) 0.4 Lymph # (Auto) 1.98 [place] # (Auto) 0.9 H Eos # (Auto) 0.1 Baso # (Auto) 0.0 Abs Immat Gran (auto) 0.09 H Absolute Neuts (auto) 6.6 Absolute Nucleated RBC 0.000 Nucleated RBC % 0.0 RPR Non-reactive HIV 1&2 Ab/P24 Ag 4thGn Negative Blood Type B Positive Antibody Screen Negative OB - PN A/P Plan Comments: A: PPD#1, doing well. P: Home to f/u 6 weeks. Exam 2 Psych: Other: AVSS ABD soft, nontender, fundus firm EXT nontender
--- NOTE | 2024-11-23 08:28 | WPDANLDPN2 ---
Anes-Prog Note L&D Date/Time: 11/23/24 08:28 Comfortable throughout: labor and delivery Neuraxial method: epidural Epidural/Spinal procedure site: clean & non-tender Neuro status: Neuro function grossly intact. Cardiovascular status: normal Respiratory status: normal Airway patency: baseline Mental status: baseline Post-Op hydration status: normal Vital Signs: Last Vital Signs Temp 37.2 C 11/23/24 04:10 Pulse 64 11/23/24 04:10 Resp 14 11/23/24 04:10 BP 98/63 L 11/23/24 04:10 Pulse Ox 100 11/23/24 04:10 O2 Del Method Room Air 11/22/24 09:30 Pain score (VAS): 0/10 I/O: Intake & Output 11/22/24 11/23/24 11/23/24 23:59 07:59 15:59 Intake Total 100 Output Total 150 Balance -50 Post-procedural complaints: none Patient feedback: Patient satisfied with anesthetic care.
[2024-11-23 09:00] VITALS: BP 102/66; PULSE 84; RESP 20; TEMP 36.8
[2024-11-23] MEDS: DOCUSATE SODIUM 100 MG CAPSULE PO (09:57)
[2024-11-23] MEDS: POLYSACCHARIDE IRON COMPLEX 150 MG CAPSULE PO (09:57)
[2024-11-23] MEDS: MULTIVIT/MIN/PREN/FOL AC/IRON TABLET 1 TAB PO (09:58)
[2024-11-24 11:23] VITALS: BP 113/79; PULSE 78; RESP 18; TEMP 36.6; O2SAT 99
== END 2024-11-23 14:30 | disposition home or self-care (01) | DRG 807 ==
LOC: ANHLDR 13:56 → ANHOB2 16:31
PROVIDERS: Admitting Provider Obstetrics & Gynecology; Visit Provider Obstetrics & Gynecology
DX: O80 Encounter for full-term uncomplicated delivery (principal); Z37.0 Single live birth; Z3A.38 38 weeks gestation of pregnancy
CPT/HCPCS: 36415; 85014; 85018; 85025; 86592; 86703; 86850; 86900; 86901; A9270; G0432; J2405; J2590; J2795; J3010; J7120

== ENCOUNTER 2025-02-01 13:53 | Emergency (ER) | payer OTHER, SELFPAY ==
--- NOTE | ~2025-02-01 | XR_ITS ---
3 VIEWS LUMBAR SPINE Ordering provider: Margie Jacobs APRN History: . low back pain x 5 days after lifting child . Comparison: None. FINDINGS: VERTEBRAL BODIES: No visible fracture or subluxation. DISK SPACES: Normal. SOFT TISSUES: Normal. IMPRESSION: No acute osseous abnormality lumbar spine. Reviewed, dictated and finalized at location A. PATIONAL WORK EXPERIENCE TEACHER
--- NOTE | 2025-02-01 13:56 | ED.BACK ---
HPI - Back Pain/Injury General Chief Complaint: Back Pain/Injury Stated Complaint: LOW BACK PAIN Source: patient and RN notes reviewed Mode of arrival: ambulatory Limitations: no limitations History of Present Illness HPI Narrative: Patient is a 29-year-old female who presents to the [facility] with complaints of low back pain x 3 days. States that the pain will occasionally radiate down her left leg. Patient states that she was picking up her child when she pivoted in another direction, and had sudden onset of low back pain that has continued to worsen in severity. She states that she has seen her chiropractor twice since, but has not had any relief. She denies numbness. Denies dysfunction of bladder or bowel. Related Data Home Medications ?Medication ?Instructions ?Recorded ?Confirmed ?Last Taken ?Type vits 75-iron 28 mg-folic 1 pkg PO DAILY 02/17/22 11/22/24 11/22/24 History acid 800 mcg-omega3 440 mg oral pack Allergies Allergy/AdvReac Type Severity Reaction Status Date / Time No Known Allergies Allergy Verified 02/01/25 14:05 Review of Systems Review of Systems: CONSTITUTIONAL: Denies fever, chills, or sweats. EYES: Denies visual changes, redness, or discharge. ENT: Denies otalgia and sore throat CARDIOVASCULAR: Denies chest pain, palpitations, or edema. RESPIRATORY: Denies cough or dyspnea. GASTROINTESTINAL: Denies abdominal pain, nausea, vomiting, or diarrhea. GENITOURINARY: Denies dysuria or hematuria. SKIN: Denies rash or itching. MUSCULOSKELETAL: Denies joint pain or myalgia, but reports low back pain. NEUROLOGIC: Denies headache, numbness, or weakness. Pertinent positives per HPI. [facility] Past Medical History Medical History No active medical problems Family History Family History Father Acute myocardial infarction Mother Asthma Grandparent Asthma Cancer, uterine Acute myocardial infarction Social History Social History Smoking status: Never smoker Substance use: never Do You Feel Safe in your Home?: Yes Lack of Transportation: No Lack of Food: Never True Current Housing: I Have Housing Concerned About Future Housing: No Difficulty Paying Gas/Electric Bills: No Difficulty Paying for Meds: No Currently Unemployed: No Education: Bachelor's Degree Difficulty w/ Childcare or Family Care: No Spiritual care concerns: No Comments At the time of my signature, I reviewed and agree with the nursing past medical, surgical, social, and family history. There is no relevant family history pertinent to the patient complaint. Exam Narrative: GENERAL: This is a well-nourished, well-developed patient, in no apparent distress. HEAD: normocephalic, atraumatic. EYES: PERRL. Sclera clear/white. Vision is grossly intact. EARS: External ears normal, auditory canals clear and without drainage, TMs normal without perforation. Hearing grossly intact. NOSE: External nose normal with no obvious nasal discharge, nares without redness, no rhinorrhea. THROAT: Mucous membranes moist, posterior pharynx clear. NECK: Neck supple, non-tender without lymphadenopathy, masses or thyromegaly. CARDIOVASCULAR: Regular rate and rhythm without murmurs, gallops, or rubs. RESPIRATORY: Clear to auscultation. Breath sounds equal bilaterally. No wheezes, rales, or rhonchi. GASTROINTESTINAL: Abdomen soft, non-tender, nondistended. Bowel sounds are active. No hepato-splenomegaly, or palpable masses. No guarding. SKIN: warm, intact with no suspicious lesions or rash, good texture and turgor. NEURO: awake, alert, and oriented to person, place and time. There were no obvious focal neurologic abnormalities. EXTREMITIES: No clubbing, cyanosis, or edema. No joint tenderness, effusion, or edema noted. BACK: Tenderness in the paraspinous muscles in the lumbar area. No tenderness over the spinous processes of the lumbar vertebrae. LEGS: Normal strength including dorsi-flexion and plantar flexion of the feet. Negative bilateral straight leg raising, normal and symmetrical knee and ankle reflexes. Course Course Level of Care: Express Care Visit Vital Signs Vital signs: Vital Signs Oxygen Delivery Room Air 02/01/25 14:00 Temperature 97.7 F 02/01/25 14:02 Pulse Rate 92 02/01/25 14:02 Respiratory Rate 16 02/01/25 14:02 Blood Pressure 120/89 02/01/25 14:02 Pulse Oximetry 100 02/01/25 14:02 Oxygen Delivery Room Air 02/01/25 14:00 Reviewed MDM - Back Pain/Injury MDM Narrative Medical decision making narrative: Use the RICE method at home. May take ibuprofen and/or Tylenol if needed. If symptoms persist in 1 week after conservative treatment, follow-up with specialist. Differential Diagnosis Differential diagnosis: Likely lumbar radiculopathy, strain of lumbar region and thoracic back pain Imaging Data Attestation: I personally reviewed and interpreted this imaging study as follows: Radiologist's impression: [address] [place] [address] XRay Report Signed Patient: Ivania Nicholson : 1995 MR#: [id number] Age: 29 Acct:[id number] Loc: [facility] ADM Date: 02/01/25Attending Dr: Ordering Physician: Margie Jacobs APRN Date of Service: 02/01/25 Procedure(s): XR lumbar spine 2-3V Accession Number(s): [id number] cc: Margie Jacobs APRN; ELECTRIC MELT OPERATOR PHYSICIAN~ 3 VIEWS LUMBAR SPINE Ordering provider: Margie Jacobs APRN History: . low back pain x 5 days after lifting child . Comparison: None. FINDINGS: VERTEBRAL BODIES: No visible fracture or subluxation. DISK SPACES: Normal. SOFT TISSUES: Normal. IMPRESSION: No acute osseous abnormality lumbar spine. Reviewed, dictated and finalized at location A. LE SQL DEVELOPER Please be advised this is a medical document. It is intended for [id number] communication. It is written in medical language and may contain unfamiliar abbreviations or verbiage. Medical documents are intended to carry relevant information, facts as evident, and the clinical opinion of the practitioner at the time of the encounter. This report may have been done utilizing a voice recognition system. Attempts have been made to correct errors. However, there may be uncorrected grammatical, spelling, and recognition errors present. The file time of this note does not necessarily represent the time of service. Dictated By: Joel Chung MD 02/01/25 1419 Signed By: <Electronically signed by Joel Chung MD in OV> 02/01/25 1421 Critical Care Time Critical Care Time Critical Care Time: No Discharge Plan Discharge Clinical Impression: Acute lumbar myofascial strain Patient Disposition: Home, Self-Care Condition: Stable Instructions: Low Back Strain (ED), P.R.I.C.E. Treatment (ED) Additional Instructions: Use the RICE method at home. May take ibuprofen and/or Tylenol if needed. If symptoms persist in 1 week after conservative treatment, follow-up with specialist. Patient Language: Polish Prescriptions: New dexamethasone 4 mg tablet 4 mg PO DAILY 5 Days Qty: 5 0RF naproxen 500 mg tablet 500 mg PO BID PRN (Reason: pain) Qty: 20 0RF No Action [id number] fum-folic ac-om3 28-800-440 mg-mcg-mg Combo Pack 1 pkg PO DAILY ibuprofen 600 mg tablet 600 mg PO Q6H PRN (Reason: cramps) Qty: 30 0RF ferrous sulfate 325 mg (65 mg iron) tablet 325 mg PO DAILY Qty: 30 0RF Follow-up/Referrals: PHYSICIAN,ELECTRIC MELT OPERATOR [Primary Care Provider] - Time of Disposition: 14:28
[2025-02-01 14:02] VITALS: BP 120/89; PULSE 92; RESP 16; TEMP 36.5; O2SAT 100
== END 2025-02-01 14:32 | disposition home or self-care (01) ==
PROVIDERS: Emergency Provider Nurse Practitioner
DX: S39.012A Strain of muscle, fascia and tendon of lower back, initial encounter (principal); X50.0XXA Overexertion from strenuous movement or load, initial encounter
CPT/HCPCS: 72100; 99213; G0463